=== PATIENT | female | born 1945 | race Caucasian/White ===

== ENCOUNTER 2019-12-18 23:19 | Observation (INO) ==
[2019-12-19] MEDS ORDERED: SKIN HEALING OINT (AQUAPHOR) 50 GM TUBE TOP PRN (01:29)
[2019-12-19] MEDS ORDERED: GLUCAGON 1 MG VIAL IM PRN (01:39)
[2019-12-19] MEDS ORDERED: DEXTROSE 50% 25 GM/50 ML VIAL IV PRN (01:39)
[2019-12-19] MEDS ORDERED: diphenhydrAMINE CAP 25 MG CAPSULE PO PRN (01:45)
[2019-12-19] MEDS ORDERED: guaiFENesin/DM ER 600-30 MG TABLET PO PRN (01:45)
[2019-12-19] MEDS ORDERED: ACETAMINOPHEN 325 MG TABLET PO PRN (01:45)
[2019-12-19] MEDS ORDERED: NICOTINE 21 MG/24 HR PATCH TRANSDERM PRN (01:45)
[2019-12-19] MEDS ORDERED: ONDANSETRON 4 MG/2 ML VIAL IV PRN (01:45)
[2019-12-19] MEDS ORDERED: hydrALAZINE 25 MG TABLET PO PRN (02:31)
[2019-12-19 02:52] LABS: Basophils % 0.1 % (0.0-0.8); Hematocrit 45.6 VOL% (35.7-47.0); Immature Granulocytes % 0.4 %; Immature Granulocytes Absolute 0.03 #; Lymphocytes # 0.9 10*3/uL (1.4-4.0); Lymphocytes % 11.9 % (21.3-54.2); Mean Corpuscular HGB Conc 30.7 GM/DL (32-36); Mean Corpuscular Volume 97.4 FL (87-102); Mean Platelet Volume 10.6 FL (9.6-12.0); Monocytes % 0.5 % (1.7-12.7); Neutrophils % 87.1 % (38.7-73.9); Platelet Count 282 T/CUMM (130-400); Red Blood Count 4.68 MC/CUMM (3.8-5.5); Red Cell Distribution Width 12.5 % (9.3-17.3); White Blood Count 7.5 T/CUMM (4-12)
[2019-12-19 03:14] LABS: Bilirubin,Urine Negative (Negative); Blood, Urine Negative (Negative); Glucose,Urine (UA) Negative (Negative); Hyaline Casts,Urine 1 /LPF (0-3); Ketones,Urine Negative (Negative); Mucus,Urine Occasional /LPF (Occasional); Nitrite,Urine Negative (Negative); Protein,Urine 30 MG/DL; RBC,Urine 3 /HPF (0-4); Squamous Epithelial Cell,Urine Occasional /HPF (0-10); Urine Appearance CLEAR (Clear); Urine Color Yellow (Yellow); Urine Specific Gravity 1.018 (1.001-1.035); Urine Urobilinogen < 2.0 EU/DL (0.2-1.0); WBC,Urine 1 /HPF (0-6)
[2019-12-19 03:26] LABS: Albumin 3.8 G/DL (3.4-5.0); Bilirubin,Total 0.7 MG/DL (0.2-1.0); Calcium 9.5 MG/DL (8.5-10.1); Risk Ratio 1.87; Thyroid Stimulating Hormone 0.15 uIU/ml (0.358-3.74); Total Protein 7.4 G/DL (6.4-8.3); VLDL CHOLESTEROL 13.6 MG/DL
[2019-12-19] MEDS: ALBUTEROL/IPRATROPIUM 3 ML NEB RESP TX SCH ×3 (06:51→19:44)
[2019-12-19] MEDS ORDERED: NIFEdipine 10 MG CAPSULE PO PRN (07:37)
[2019-12-19] MEDS ORDERED: ENOXAPARIN 60 MG/0.6 ML SYRINGE SUBCUT SCH (08:00)
[2019-12-19] MEDS ORDERED: NEBIVOLOL 5 MG TABLET PO SCH (09:00)
[2019-12-19] MEDS ORDERED: ASPIRIN 325 MG TABLET PO SCH (09:00)
[2019-12-19 09:25] LABS: Free T4 (Free Thyroxine) 0.97 NG/DL (0.76-1.46)
[2019-12-19] MEDS ORDERED: FUROSEMIDE 40 MG/4 ML VIAL IV ONE (09:31)
[2019-12-19] MEDS: ENOXAPARIN 40 MG/0.4 ML SYRINGE SUBCUT SCH (11:23)
[2019-12-19] MEDS: methylPREDNISolone SOD SUC 40 MG/1 ML VIAL IV SCH (17:05)
[2019-12-19] MEDS: ROSUVASTATIN 20 MG TABLET PO SCH (20:58)
[2019-12-20] MEDS: ALBUTEROL/IPRATROPIUM 3 ML NEB RESP TX SCH ×4 (00:11→18:58)
[2019-12-20] MEDS: methylPREDNISolone SOD SUC 40 MG/1 ML VIAL IV SCH ×2 (04:20→17:04)
[2019-12-20 04:49] LABS: Basophils % 0.1 % (0.0-0.8); Hematocrit 44.2 VOL% (35.7-47.0); Hemoglobin 13.7 GM/DL (12.0-16.0); Immature Granulocytes % 0.5 %; Immature Granulocytes Absolute 0.07 #; Lymphocytes # 1.3 10*3/uL (1.4-4.0); Mean Corpuscular Volume 96.9 FL (87-102); Mean Platelet Volume 11.4 FL (9.6-12.0); Monocytes % 6.5 % (1.7-12.7); Neutrophils % 83.9 % (38.7-73.9); Platelet Count 252 T/CUMM (130-400); Red Blood Count 4.56 MC/CUMM (3.8-5.5); Red Cell Distribution Width 12.5 % (9.3-17.3)
[2019-12-20 05:21] LABS: Osmolality,Calculated 289.5 MOS/KG (273-304)
[2019-12-20] MEDS: ASPIRIN EC 81 MG TABLET PO SCH (08:07)
[2019-12-20] MEDS ORDERED: AZITHROMYCIN 250 MG TABLET PO ONE (08:26)
[2019-12-20] MEDS ORDERED: LOSARTAN 25 MG TABLET PO SCH (09:00)
[2019-12-20] MEDS ORDERED: FUROSEMIDE 40 MG TABLET PO SCH ×2 (09:00→10:59)
[2019-12-20] MEDS: ENOXAPARIN 40 MG/0.4 ML SYRINGE SUBCUT SCH (10:48)
[2019-12-20] MEDS: ROSUVASTATIN 20 MG TABLET PO SCH (21:36)
[2019-12-21] MEDS: ALBUTEROL/IPRATROPIUM 3 ML NEB RESP TX SCH ×3 (00:56→12:00)
[2019-12-21] MEDS: methylPREDNISolone SOD SUC 40 MG/1 ML VIAL IV SCH (04:54)
[2019-12-21] MEDS ORDERED: AZITHROMYCIN 250 MG TABLET PO SCH (09:00)
[2019-12-21] MEDS ORDERED: POTASSIUM CHLORIDE 10 MEQ TABLET PO SCH (09:00)
[2019-12-21] MEDS ORDERED: amLODIPine 5 MG TABLET PO SCH (09:00)
[2019-12-21] MEDS: ASPIRIN EC 81 MG TABLET PO SCH (09:55)
[2019-12-21] MEDS: ENOXAPARIN 40 MG/0.4 ML SYRINGE SUBCUT SCH (10:43)
[2019-12-21 12:37] VITALS: BP 128/64
== END 2019-12-21 14:03 | disposition home health service (06) ==
LOC: INTOOBSV 12-19 00:42 → N.CC 12-19 00:42 → SUATTDRO 12-19 00:42 → N.TELES 12-20 15:58
PROVIDERS: ADMIT Internal Medicine Geriatric Medicine; ATTEND Internal Medicine